=== PATIENT | female | born 1985 | race Caucasian/White ===

== ENCOUNTER → 2020-04-30 09:16 | Outpatient (CLI) | payer BC, SELFPAY ==
[2020-04-30 08:39] VITALS: BMI 33.6
[2020-04-30 09:31] LABS: Absolute Lymphocyte Count 2.51 X10^3/uL (0.83-4.51); Absolute Neutrophil Count 3.9 X10^3/uL (2.0-7.7); Basophil# 0.05 X10^3/uL; Basophil% 0.7 % (0-1); Hematocrit 43.1 % (37-47); Hemoglobin 14.2 g/dL (12.0-15.0); Lymphocyte # 2.51 X10^3/ul (4.0); Lymphocyte % 35.4 % (19-41); Mean Corp Hgb Conc 32.9 g/dL (32-36); Mean Corpuscular Hgb 27.8 pg (27.0-32.0); Mean Corpuscular Volume 84.5 fL (81-99); Mean Platelet Vol. 9.7 fl (6.2-12.0); Monocyte% 8.5 % (0-10); NRBC Flagged by Analyzer 0 % (0-5); Platelet Count 346 K/mm3 (150-450); RBC Distribution Width CV 13.7 % (11.6-14.6); RBC Distribution Width SD 42.5 fl (35.1-43.9); White Blood Count 7.1 K/mm3 (4.4-11.0)
[2020-04-30 10:39] LABS: Thyroid Stim Hormone (TSH) 1.35 uIU/mL (0.358-3.74)
== END ==
PROVIDERS: PCP Internal Medicine; Referring Provider Obstetrics & Gynecology; Visit Provider Obstetrics & Gynecology
DX: N93.9 Abnormal uterine and vaginal bleeding, unspecified (principal)
CPT/HCPCS: 36415; 84443; 85025

== ENCOUNTER → 2020-05-09 08:48 | Outpatient (CLI) | payer BC, SELFPAY ==
[2020-04-30 08:39] VITALS: BMI 33.6
--- NOTE | 2020-05-09 08:50 | US_ITS ---
STUDY: ULTRASOUND OF THE FEMALE PELVIS - COMPLETE REASON FOR EXAM: Female, 35 years old. AUB -- on bc pill LMP: 04/25/2020. TECHNIQUE: Transabdominal and Transvaginal TECHNICAL QUALITY: Adequate. COMPARISON: None. FINDINGS: The uterus is retroverted and is in a midline position. The uterus is enlarged and measures 10.4 cm x 7.6 times by 5.5 cm. Normal uterine cervix. The endometrium measures 4.4 mm in thickness, and is hyperechoic. There is no demonstrated endometrial mass. Multiple uterine fibroids are seen. The largest fibroid measures 3.4 cm x 3.4 cm x 2.6 cm. I.U.D. - The patient does not have an I.U.D. The right ovary is visualized. The right ovary measures 3 cm x 3.3 cm x 2.4 cm. There is a 2.3 cm x 2.2 cm x 1.9 cm cyst. There is no visualized right adnexal mass or complex lesion. There is normal arterial and normal venous vascularity. The left ovary is visualized. The left ovary measures 2.7 cm x 3 cm x 1.8 cm. There is no left ovarian cyst or ovarian mass. There is no visualized left adnexal mass or complex lesion. There is normal arterial and normal venous vascularity. There is no fluid in the cul-de-sac. The pre void volume of the bladder was 547 ml. US/Transvaginal Non- IMPRESSION: Multiple uterine fibroids. The largest measures 3.4 cm x 3.4 cm x 2.6 cm. There is a 2.3 cm x 2.2 cm x 1.9 cm right ovarian cyst. Electronically Signed: Abhijeet Lazo MD at 10:55 EST , Service support ,
--- NOTE | 2020-05-09 08:50 | US_ITS ---
STUDY: ULTRASOUND OF THE FEMALE PELVIS - COMPLETE REASON FOR EXAM: Female, 35 years old. AUB -- on bc pill LMP: 04/25/2020. TECHNIQUE: Transabdominal and Transvaginal TECHNICAL QUALITY: Adequate. COMPARISON: None. FINDINGS: The uterus is retroverted and is in a midline position. The uterus is enlarged and measures 10.4 cm x 7.6 times by 5.5 cm. Normal uterine cervix. The endometrium measures 4.4 mm in thickness, and is hyperechoic. There is no demonstrated endometrial mass. Multiple uterine fibroids are seen. The largest fibroid measures 3.4 cm x 3.4 cm x 2.6 cm. I.U.D. - The patient does not have an I.U.D. The right ovary is visualized. The right ovary measures 3 cm x 3.3 cm x 2.4 cm. There is a 2.3 cm x 2.2 cm x 1.9 cm cyst. There is no visualized right adnexal mass or complex lesion. There is normal arterial and normal venous vascularity. The left ovary is visualized. The left ovary measures 2.7 cm x 3 cm x 1.8 cm. There is no left ovarian cyst or ovarian mass. There is no visualized left adnexal mass or complex lesion. There is normal arterial and normal venous vascularity. There is no fluid in the cul-de-sac. The pre void volume of the bladder was 547 ml. US/Pelvic (Non ) IMPRESSION: Multiple uterine fibroids. The largest measures 3.4 cm x 3.4 cm x 2.6 cm. There is a 2.3 cm x 2.2 cm x 1.9 cm right ovarian cyst. Electronically Signed: Abhijeet Lazo MD at 10:55 EST , Service support ,
== END ==
LOC: OPUS 08:50
PROVIDERS: PCP Internal Medicine; Referring Provider Obstetrics & Gynecology; Visit Provider Obstetrics & Gynecology
DX: N93.9 Abnormal uterine and vaginal bleeding, unspecified (principal)
CPT/HCPCS: 76830; 76856

== ENCOUNTER → 2020-06-27 | Outpatient (CLI) | payer BC, SELFPAY ==
[2020-06-27 08:14] VITALS: BMI 34.3
--- NOTE | 2020-06-27 08:30 | EMB_PTH ---
PATIENT: NAVEEN GRACE LOC: [facility] U#:[id number] AGE/SX: 35/F ROOM: RE06/27/[address]: Dr. Barbara Washington MD : 1985 BED: DIS: 06/27/2020 SPEC #: [id number] RECD: 06/27/20 12:42 STATUS: ALCIDES REBrady #: [id number] PAPA: 06/27/20 08:[address]: Barbara Washington DEPT: SURGICAL PATHOLOGY RECD BY: Lillian Iqbal ENTERED: 06/27/20 13:02 SP TYPE: ENDOM BX/C MAX DR: Dr. Kathleen Abdi MD Tissues: Endometrium, NOS Procedures: Surgery Specimen Level IV HEADER OPERATION: Endometrial biopsy PRE-OP DIAGNOSIS: Abnormal uterine bleeding TISSUE SUBMITTED: Endometrial lining MICROSCOPIC DIAGNOSIS Endometrial biopsy: Fragments of weakly proliferative endometrium and blood clots. See comment. BRENDAN:heladio 06/28/2020 COMMENT The specimen predominantly consists of blood clots. MICROSCOPIC DESCRIPTION Slides are reviewed. GROSS DESCRIPTION Received is one container labeled with the patient's name and not further designated. The specimen consists of multiple fragments of hemorrhagic soft tissue that in aggregate measure 3 x 2.5 x 0.3 cm. The specimen is totally submitted in one cassette. / SJ:heladio 06/27/20 TC:5 [facility]: [id number]
== END | disposition home or self-care (01) ==
LOC: LABSPEC 12:58
PROVIDERS: PCP Internal Medicine; Referring Provider Obstetrics & Gynecology; Visit Provider Obstetrics & Gynecology
DX: N93.9 Abnormal uterine and vaginal bleeding, unspecified (principal)
CPT/HCPCS: 88305

== ENCOUNTER 2020-07-10 06:00 | Day surgery (SDC) | payer BC, SELFPAY ==
[2020-05-23 08:53] VITALS: BMI 34.4
[2020-06-27 08:14] VITALS: BMI 34.3
[2020-07-09 09:30] LABS: Hematocrit 43.5 % (37-47); Mean Corp Hgb Conc 32.2 g/dL (32-36); Mean Platelet Vol. 9.9 fl (6.2-12.0); Platelet Count 347 K/mm3 (150-450); RBC Distribution Width CV 13.6 % (11.6-14.6); RBC Distribution Width SD 43.3 fl (35.1-43.9)
[2020-07-09 09:41] LABS: Partial Thromboplast Time 25.8 Seconds (24.1-36.2)
[2020-07-09 09:53] LABS: Magnesium 2.3 mg/dL (1.6-2.6)
[2020-07-10] VITALS (13 sets, daily range): BP systolic 95–132; BP diastolic 50–80; PULSE 68–108; RESP 12–16; TEMP 36–37.1; O2SAT 96–100
--- NOTE | 2020-07-10 | HYST_PTH ---
PATIENT: NAVEEN GRACE LOC: [facility] [place] U#:[id number] AGE/SX: 35/F ROOM: RE07/10/[address]: Dr. Barbara Washington MD : 1985 BED: DIS: 07/10/2020 SPEC #: [id number] RECD: 07/10/20 13:18 STATUS: ALCIDES REBrady #: [id number] PAPA: 07/10/20 00:[address]: Barbara Washington DEPT: SURGICAL PATHOLOGY RECD BY: Ruddy Richards ENTERED: 07/11/20 09:27 SP TYPE: HYSTERECT OTHR DR: Dr. Kathleen Abdi MD Tissues: Uterus, NOS Procedures: Surgery Specimen Level V HEADER OPERATION: Robotic assisted total laparoscopic hysterectomy, bilateral salpingectomy PRE-OP DIAGNOSIS: Abnormal uterine bleeding TISSUE SUBMITTED: Uterus, cervix, bilateral fallopian tubes MICROSCOPIC DIAGNOSIS Uterus, cervix, bilateral fallopian, hysterectomy and bilateral salpingectomy: Cervix - no pathologic diagnosis. Endometrium ? weakly proliferative endometrium. Myometrium ? submucosal, intramural and subserosal leiomyomas (largest measuring 3 cm in greatest dimension). Bilateral fallopian tubes - no pathologic diagnosis. SJ:heladio 07/12/2020 MICROSCOPIC DESCRIPTION Slides are reviewed. GROSS DESCRIPTION Received in fixative is one container labeled with the patient's name and designated uterus, cervix, bilateral fallopian tubes. The specimen consists of a hysterectomy specimen consisting of uterus with cervix and detached bilateral fallopian tubes. The uterus with cervix weighs 184 gm and measures 10 x 8 x 6 cm. The serosal surface is wong, glistening. Multiple subserosal nodules are noted. The ectocervical mucosa is unremarkable. The external os is oval and patulous in contour. The endocervical canal measures 3 cm in length and the endocervical mucosa is wong, glistening and unremarkable. The endometrial cavity is triangular and focally distorted due to the presence of submucosal nodular masses and measures 5 cm in length and up to 3 cm in width. The endometrium is wong, glistening without any mass lesion and measures 0.1 cm in thickness. Sections of the uterine wall reveal multiple submucosal, intramural and subserosal nodular masses. The largest mass measures 3 cm in greatest dimension. Sections of these masses reveal wong whorled cut surfaces without areas of hemorrhage, necrosis or cystic degeneration. An uninvolved uterine wall measures up to 3 cm in thickness. Sections of the uterine wall also contain smaller nodular masses. The detached bilateral fallopian tubes are not identified as right or left and measures 6 cm in length and 0.5 cm in diameter and 5 cm in length and 0.5 cm in diameter. The fimbrial end is identified. Sections reveal unremarkable cut surfaces. Director Veterinary sections are submitted in 12 cassettes as follows: 1 - anterior cervix, 2??posterior cervix, 3 & 4 - anterior uterine wall, 5 & 6 - posterior uterine wall, smaller nodular masses, 7??largest nodular mass, 8 - intermediate sized nodular masses, 9 & 10 - smaller nodular masses, 11?&?12 - bilateral fallopian tubes with each containing one fallopian tube. / BRENDAN:heladio 07/11/20 TC:1 CPT: 59048
[2020-07-10] MEDS: Lactated Ringers 1,000 ML 40 ML IV (06:31)
[2020-07-10 07:55] LABS: Bedside Glucose 92 mg/dL (70-110)
[2020-07-10] MEDS: Cefazolin 2 GM in 0.9% Normal Saline 100 ML IV (08:15)
[2020-07-10] MEDS: Ropivacaine 0.5% 30 ML Vial (10:00)
[2020-07-10 10:49] LABS: Internal QC Validated? YES +Cl - CLEAR BKGD; Pregnancy, Urine Negative Negative; Record Kit Lot#,Urine Preg 42100
[2020-07-10] MEDS: Lactated Ringers 1,000 ML 70 ML IV (10:51)
--- NOTE | 2020-07-10 11:05 | HP.PCM.OB_ITS ---
HPI - General HPI Narrative NAVEEN GRACE, is a 35 F who presents for robotic assisted total laparoscopic hysterectomy, bilateral salpingectomy, possible bilateral lateral salpingo- oophorectomy, cystoscopy for abnormal uterine bleeding and fibroid uterus [facility] Medical History (Updated 07/10/20 @ 11:[address] Barbara Washington MD) Depression with anxiety Elevated blood pressure reading [place] Seizures Home Medications imipramine HCl 25 mg tablet 50 mg PO .QAM 04/30/20 [History Last Taken Unknown] lamotrigine 25 mg tablet 50 mg PO BID tab 04/30/20 [History Last Taken Unknown] propranolol 20 mg tablet 20 mg PO BID 04/30/20 [History Last Taken Unknown] cholecalciferol (vitamin D3) 2,000 unit PO DAILY 07/03/20 [History Last Taken Unknown] cyanocobalamin (vitamin B-12) 1,000 mcg PO DAILY 07/03/20 [History Last Taken Unknown] imipramine HCl 25 mg PO 1800 07/03/20 [History Last Taken Unknown] ibuprofen 800 mg PO Q8H #30 tab 07/10/20 [Rx Last Taken Unknown] oxycodone 5 mg PO Q6H PRN 7 Days #14 cap 07/10/20 [Rx Last Taken Unknown] Allergy/AdvReac Type Severity Reaction Status Date / Time No Known Allergies Allergy Verified 07/03/20 09:01 Family History Mother Breast cancer Grandmother Breast cancer Father Hypertension Brother Hypertension Surgical History (Updated 07/10/20 @ 11:[address] Barbara Washington MD) S/P cholecystectomy S/P hysterectomy Social History (Updated 06/27/20 @ 08:[address] Barbara Washington MD) Smoking Status: Never smoker alcohol intake: current details: occasionally substance use type: does not use caffeine: Yes what type of physical activity do you participate in: none seatbelt use: always do you feel safe at home: Yes additional social history: - Aj History 2 Elective abortions Hx Para 2 Spontaneous abortions Hx # Term Pregnancies Ectopic pregnancies Hx # Pregnancies Multiple births # of living children ROS Eyes Eyes: Reports systems reviewed and no addt'l complaints, except as documented ENT HEENT: Reports systems reviewed and no addt'l complaints, except as documented Cardiovascular Cardiovascular: Reports systems reviewed and no addt'l complaints, except as documented Respiratory/Chest Respiratory/Chest: Reports systems reviewed and no addt'l complaints, except as documented Gastrointestinal Gastrointestinal: Reports systems reviewed and no addt'l complaints, except as documented Genitourinary Genitourinary: Reports systems reviewed and no addt'l complaints, except as documented Musculoskeletal Musculoskeletal: Reports systems reviewed and no addt'l complaints, except as documented Integumentary Integumentary: Reports systems reviewed and no addt'l complaints, except as documented Neurologic Neurologic: Reports systems reviewed and no addt'l complaints, except as documented Psychiatric Psychiatric: Reports systems reviewed and no addt'l complaints, except as documented Endocrine Endocrinology: Reports systems reviewed and no addt'l complaints, except as documented Hematologic/Lymphatic Hematologic/Lymphatic: Reports systems reviewed and no addt'l complaints, except as documented Allergic/Immunologic Allergic/Immunologic: Reports systems reviewed and no addt'l complaints, except as documented Vital Signs Vital Signs Vital Signs: 07/10/20 10:34 07/10/20 10:45 Temperature 96.8 F L Temperature Source Temporal Pulse Rate 100 87 Pulse Strength Normal (2+) Respiratory Rate 16 16 Respiratory Pattern Normal Blood Pressure 105/50 L 103/72 Blood Pressure Mean 68 82 Blood Pressure Source Monitor Monitor Blood Pressure Position Supine Supine Blood Pressure Location Right Arm Right Arm Baseline BP 119/70 119/70 Pulse Ox 100 99 Oxygen Delivery Method Simple Mask Room Air Oxygen Flow Rate (L/min) 2 Physical Exam Const alert, oriented x3, no apparent distress, average body habitus, healthy appearing and well nourished HEENT normocephalic and moist oral mucous membranes Head and Scalp: atraumatic Eyes PERRL and EOMs intact bilaterally Neck full ROM Resp normal respiratory effort, no retractions and no use of accessory muscles Cardio regular rate and regular rhythm GI soft to palpation, non-tender and non-distended Extremity normal to inspection and full ROM Skin no rashes or lesions noted Neuro no focal motor deficits and no sensory deficits noted Psych mental status grossly normal, affect normal, speech normal and activity/motor behavior normal Assessment & Plan Assessment/Plan (1) Abnormal uterine bleeding (AUB): Status: Acute Code(s): N93.9 - Abnormal uterine and vaginal bleeding, unspecified Plan: Presents for robotic assisted total laparoscopic hysterectomy, bilateral salpingectomy, possible bilateral salpingoophorectomy, cystoscopy for fibroid uterus and AUB Again reviewed medical and surgical history. No changes. ROS negative Reviewed risks of surgery and recovery expectations. All questions answered. 2 prior vaginal deliveries EMB negative Consent form signed with patient in office
--- NOTE | 2020-07-10 11:08 | OP.PCM_ITS ---
Problems Associated Problem List Diagnoses (1) Abnormal uterine bleeding (AUB): Report of Operation Date of Procedure: 07/10/20 Pre-Operative Diagnosis: Abnormal uterine bleeding, fibroid uterus Post-Operative Diagnosis: Same Surgery/Procedure Performed:: Robotic assisted total laparoscopic hysterectomy, bilateral salpingectomy, cystoscopy Description of Surgical Findings:: Globally enlarged uterus sounding to 10 cm. Normal-appearing tubes and ovaries bilaterally business and marketing teacher: Burton Porras Type of Anesthesia: General Special Medications: Ancef 2 g Specimen's removed: Uterus, cervix, bilateral fallopian tubes Drains: Nesbitt Estimated Blood Loss (mL): 50 cc Description of Procedure: The patient was taken to the operating room where general anesthesia was obtained without difficulty. She was prepped and draped in the dorsolithotomy position with yellowfin stirrups. Weighted speculum was placed in the posterior aspect of the vagina and the anterior lip of the cervix was grasped with a single-tooth tenaculum. The cervix was sequentially dilated in order to accommodate a Aventicular uterine manipulator. Gloves were changed and attention was directed to the abdominal cavity. A 5 mm incision was made in the left upper quadrant and the varies needle was inserted without difficulty. The abdomen was insufflated. The Veress needle was removed and a 5 mm Optiview port was placed under direct visualization. Intra-abdominal placement was confirmed. 8 mm incisions were made in the right and left lower quadrants and approximately 2 fingerbreadths above the umbilicus and robotic ports were placed. A 12 mm accessory port was placed in the right upper quadrant. Findings were as above. The patient was placed in steep Trendelenburg positioning and the bowel was displaced superiorly. The da Colin robot was subsequently docked without any complications.the bilateral fallopian tubes were elevated and grasped. The mesosalpinx was cauterized and transected bilaterally. The fallopian tubes were amputated at the cornual region and removed through the accessory port. The utero-ovarian ligaments were identified bilaterally. These were cauterized and transected with the bipolar cautery and the EndoShears. This was followed by the round ligament, which was cauterized and transected in a similar fashion. The anterior leaf of the broad ligament was entered and the bladder flap dissected off of the lower uterine segment and cervix without complications. The uterine arteries bilaterally were skeletonized, cauterized, and transected. At this time, the uterus was blanched effectively demonstrating that the blood supply to the uterus had been terminated. The colpotomy cup was made with the monopolar scissors and carried around the entire cervicovaginal junction until the cervix and uterus were released from its moorings to the vagina. The cervix and uterus were removed from the abdominal cavity through the vagina. A pneumooccluder was then placed in the vagina. The cuff was then closed in a running fashion using oh V-Loc suture. The abdomen was copiously irrigated, cleared of all clots and debris, and the pedicles were examined and noted to be hemostatic. Occluder was then removed from the vagina. Attention was then directed to the pelvis to perform a cystoscopy. Nesbitt catheter was removed and the cystoscope was introduced into the bladder. The bladder was inspected and no evidence of trauma was noted. Vigorous spill was noted bilaterally from the ureters. The cystoscope was then removed from the bladder. Gloves were changed and all the instruments were subsequently removed from the patient?s abdomen and vagina, and the 12-mm fascial defect was closed with a #2- 0 Vicryl stitch, and the five skin incisions were closed with #4-0 Monocryl for excellent hemostasis and reapproximation. All counts were correct x2. The patient was awakened and taken to the recovery room in stable condition. Complications None apparent Admit VTE Documentation VTE Present on Admission: No VTE Mechan Device Prophylaxis: SCD's VTE Pharm Prophylaxis ordered?: No [id number]: [id number] TLH+BS/O <250gr uterus (Robotic assisted)
[2020-07-10] MEDS: HYDROcodone Bitartrate/Apap 5/325 Tablet PO (12:10)
== END 2020-07-10 18:25 | disposition home or self-care (01) ==
LOC: SDC 07:45 → AC 07:46
PROVIDERS: Anesthesiology; PCP Internal Medicine; Referring Provider Obstetrics & Gynecology; Visit Provider Obstetrics & Gynecology
PROC: 0UT94ZZ Resection of Uterus, Percutaneous Endoscopic Approach (ICD-10-PCS; CPT 58573; principal; 2020-07-10 07:55)
DX: D25.1 Intramural leiomyoma of uterus (principal); D25.0 Submucous leiomyoma of uterus; D25.2 Subserosal leiomyoma of uterus; F41.8 Other specified anxiety disorders; G40.909 Epilepsy, unspecified, not intractable, without status epilepticus; Z20.822 Contact with and (suspected) exposure to COVID-19; Z79.899 Other long term (current) drug therapy
CPT/HCPCS: 00840; 58573; 36415; 81025; 82962; 83735; 85027; 85730; 86850; 86900; 86901; 87426; 88307; C9803; J7120; J2405